=== PATIENT | female | born 1975 | race Caucasian/White ===

== ENCOUNTER 2020-08-15 20:12 | Emergency (ER) | payer BC ==
[2020-08-15] MEDS ORDERED: Sodium Chloride 0.9% 10 ML Syringe FLUSH PRN (20:50)
[2020-08-15] MEDS ORDERED: methylPREDNISolone Sodium Succinate 125 MG/2 ML SDV IVPUSH ONE (20:50)
[2020-08-15] MEDS ORDERED: Albuterol 0.083% 2.5 MG/3 ML Neb Soln NEB ONE (20:50)
[2020-08-15] MEDS ORDERED: Sodium Chloride 0.9% 1,000 ML IV ONE (20:50)
[2020-08-15] MEDS ORDERED: Famotidine 20 MG/2 ML SDV IVPUSH ONE (20:50)
--- NOTE | 2020-08-15 21:14 | EDM.PDOC ---
ED HPI GENERAL MEDICAL PROBLEM - General Chief Complaint: Allergic Reaction Stated Complaint: ALLERGIC REACTION TO WASP STING Time Seen by Provider: 08/15/20 20:43 Source of Information: Reports: Patient, RN Notes Reviewed History Limitations: Reports: No Limitations - History of Present Illness INITIAL COMMENTS - FREE TEXT/NARRATIVE: Patient is a 45-year-old female who presents to the ED for the evaluation of allergic reaction. Patient notes that earlier this afternoon, she was stung by wasp [address] on her left anterior forearm. Initially it was fine, but over the left next few hours there was some increased redness, swelling, and she did get some systemic hives, and felt like her throat was closing shut. She does have a history of asthma, but does not have an active bee allergy that she was aware of. She did take 75 mg of Benadryl, 50 at initial time of onset of symptoms, and another 25 when she felt like her tongue was swelling. She does also feel like her lungs are tight, and feels like she was just about ready to use her rescue inhaler at home. Other than this, she has no sick-like symptoms, no fever/chills, cough/shortness of breath, nausea/vomiting/diarrhea. Erythematous area on her left anterior forearm, that is roughly softball size. - Related Data Allergies Allergy/AdvReac Type Severity Reaction Status Date / Time Penicillins Allergy Cannot Verified 08/15/20 20:37 Remember Home Meds: Home Meds Cetirizine [ZyrTEC] 10 mg PO DAILY 08/15/20 [History] Escitalopram [Lexapro] 10 mg PO DAILY 08/15/20 [History] norgestimate-ethinyl estradioL [Ortho Tri-Cyclen 28 Tablet] 1 tab PO DAILY 08/15/20 [History] Past Medical History - Past Health History Medical/Surgical History: Denies Medical/Surgical History Social & Family History - Tobacco Use Smoking Status *Q: Never Smoker - Caffeine Use Caffeine Use: Reports: Coffee - Recreational Drug Use Recreational Drug Use: No ED ROS ALLERGIC REACTION - Review of Systems Review Of Systems: Comprehensive ROS is negative, except as noted in HPI. ED EXAM GENERAL NO PERIP PULSE - Physical Exam Exam: See Below Exam Limited By: No Limitations General Appearance: Alert, WD/WN, No Apparent Distress Eye Exam: Bilateral Eye: EOMI Throat/Mouth: Normal Inspection, Normal Lips, Normal Teeth, Normal Gums, Normal Oropharynx, Normal Voice, No Airway Compromise Head: Atraumatic, Normocephalic Neck: Normal Inspection Respiratory/Chest: No Respiratory Distress, Lungs Clear, No Accessory Muscle Use, Chest Non-Tender, Decreased Breath Sounds (mildly decreased) Cardiovascular: Normal Peripheral Pulses, Regular Rate, Rhythm, No Murmur GI/Abdominal: Normal Bowel Sounds, Soft, Non-Tender, No Distention, No Mass Extremities: Normal Inspection, Normal Capillary Refill Neurological: Alert, Oriented, Normal Cognition, No Motor/Sensory Deficits Psychiatric: Normal Affect, Normal Mood Skin Exam: Warm, Dry, Intact, Normal Color, No Rash Course - Vital Signs Last Recorded V/S: Last Vital Signs Temp 98.3 F 08/15/20 20:30 Pulse 89 08/15/20 20:30 Resp 21 H 08/15/20 20:30 BP 143/83 H 08/15/20 20:30 Pulse Ox 100 08/15/20 21:44 - Orders/Labs/Meds Orders: Active Orders 24 hr Category Date Time Status Peripheral IV Care [RC] . DIRECTED Care 08/15/20 20:50 Ordered RT Aerosol Therapy [RC] ASDIRECTED Care 08/15/20 20:51 Ordered Sodium Chloride 0.9% [Normal Saline] 1,000 ml Med 08/15/20 20:50 Active IV ONETIME Sodium Chloride 0.9% [Saline Flush] Med 08/15/20 20:50 Active 10 ml FLUSH ASDIRECTED PRN Peripheral IV Insertion Adult [OM.PC] Stat Oth 08/15/20 20:50 Ordered Medication Orders Sodium Chloride (Normal Saline) 1,000 mls @ 500 mls/hr IV ONETIME ONE Stop: 08/15/20 22:49 Last Admin: 08/15/20 21:32 Dose: 500 mls/hr Documented by: HERMMIC Sodium Chloride (Saline Flush) 10 ml FLUSH ASDIRECTED PRN PRN Reason: Keep Vein Open Meds: Medications Generic Name Dose Route Start Last Admin Trade Name Freq PRN Reason Stop Dose Admin Sodium Chloride 1,000 mls @ 500 mls/hr 08/15/20 20:50 08/15/20 21:32 Normal Saline IV 08/15/20 22:49 500 mls/hr ONETIME ONE Administration Sodium Chloride 10 ml 08/15/20 20:50 Saline Flush FLUSH ASDIRECTED PRN Keep Vein Open Discontinued Medications Generic Name Dose Route Start Last Admin Trade Name Toñito PRN Reason Stop Dose Admin Albuterol 2.5 mg 08/15/20 20:50 08/15/20 21:44 Proventil Neb Soln NEB 08/15/20 20:51 2.5 mg ONETIME ONE Administration Famotidine 20 mg 08/15/20 20:50 08/15/20 21:32 Pepcid IVPUSH 08/15/20 20:51 20 mg ONETIME ONE Administration Methylprednisolone Sodium Succinate 125 mg 08/15/20 20:50 08/15/20 21:33 Solu-Medrol IVPUSH 08/15/20 20:51 125 mg ONETIME ONE Administration - Re-Assessments/Exams Free Text/Narrative Re-Assessment/Exam: 08/15/20 21:13 Patient presents to the ED for evaluation of her allergic reaction. Have ordered IV to be placed along with IV Solu-Medrol, famotidine for initial management. And an albuterol nebulizer. She has already taken 75 mg of Benadryl, so no Benadryl will be given at this time. 08/15/20 22:33 Patient was feeling better after the meds given. We will discharge her home with a burst of prednisone and other general recommendations. Patient was okay with this plan. 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 You did have a little bit of allergic reaction, systemically to this wasp venom. As the wasp stung you 3 times in the same spot. You were given some IV fluids, and IV medications to help relieve the symptoms, you did report pretty good relief of symptoms at the time of discharge. You have been given a prescription for prednisone, please take as directed, 1 tablet 2 times a day for 5 days, then 1 tablet once daily for 5 days. This medication was provided to you through [employer] machine in our ER lobby. You may take 25 mg Benadryl every 4 hours as needed for further symptomatic relief. You may also try Pepcid, [id number] as directed for further antihistamine relief. Continue to take your albuterol inhaler as directed for feelings of shortness of breath. Please return to the ER at any time if your symptoms change or worsen. Sepsis Event Note (ED) - Evaluation Sepsis Screening Result: No Definite Risk - Focused Exam Vital Signs: Vital Signs Temp Pulse Resp BP Pulse Ox Pulse Ox 08/15/20 21:44 100 08/15/20 20:30 98.3 F 89 21 H 143/83 H 95 - My Orders Last 24 Hours: My Active Orders 08/15/20 20:50 Peripheral IV Care [RC] . DIRECTED Sodium Chloride 0.9% [Normal Saline] 1,000 ml IV ONETIME Sodium Chloride 0.9% [Saline Flush] 10 ml FLUSH ASDIRECTED PRN Peripheral IV Insertion Adult [OM.PC] Stat 08/15/20 20:51 RT Aerosol Therapy [RC] ASDIRECTED - Assessment/Plan Last 24 Hours: My Active Orders 08/15/20 20:50 Peripheral IV Care [RC] . DIRECTED Sodium Chloride 0.9% [Normal Saline] 1,000 ml IV ONETIME Sodium Chloride 0.9% [Saline Flush] 10 ml FLUSH ASDIRECTED PRN Peripheral IV Insertion Adult [OM.PC] Stat 08/15/20 20:51 RT Aerosol Therapy [RC] ASDIRECTED
== END 2020-08-15 23:05 | disposition home or self-care (01) ==
LOC: JD.ED 20:12
DX: T63.481A Toxic effect of venom of other arthropod, accidental (unintentional), initial encounter (principal); J45.909 Unspecified asthma, uncomplicated; Z88.0 Allergy status to penicillin; Z79.899 Other long term (current) drug therapy
CPT/HCPCS: 94640; 96361; 96374; 96375; 99283; J2930; J3490; J7030

== ENCOUNTER 2022-05-06 10:23 | Emergency (ER) | payer BC ==
[2022-05-06] MEDS ORDERED: Acetaminophen 325 MG Tab PO ONE (11:21)
[2022-05-06] MEDS ORDERED: Ketorolac 60 MG/2 ML SDV IM ONE (11:21)
== END 2022-05-06 12:26 | disposition home or self-care (01) ==
LOC: JD.ED 10:23
DX: U07.1 COVID-19 (principal); Z88.0 Allergy status to penicillin
CPT/HCPCS: 87635; 96372; 99284; A9270; J1885; U0002